=== PATIENT | male | born 1980 | race Caucasian/White ===

== ENCOUNTER 2018-06-05 13:52 | Outpatient (RCR) | payer MEDICAID, SELFPAY ==
[2018-06-05 14:13] VITALS: BP 115/71; PULSE 103; RESP 18; TEMP 36.6; BMI 27.4
--- NOTE | 2018-06-05 17:31 | PCM.WC.HP ---
(1) Pressure ulcer of sacral region, stage 4 Status: Chronic Current Visit: Yes Code(s): L89.154 - Pressure ulcer of sacral region, stage 4 History of Present Illness Date of Service: 06/05/18 Chief Complaint: Nonhealing ulceration to sacrum times 4 months History of Wound: This is a 38-year-old male who presents to the wound healing center today with his father with complaints of nonhealing pressure ulcer to his sacrum times 4 months. His past medical history is very limited due to the patient being nonverbal and due to his father having a extreme language barrier as well secondary to a stroke. Apparently the patient's wound started 4 months ago after he had a brain abscess and a shunt was placed and the patient was treated for this at [facility] with multiple antibiotics. He has been a resident of multiple nursing homes since then and has most recently been at [facility]. According to the patient's father, the patient has been more lethargic today and has also been complaining of abdominal pain. Patient hard to arouse during clinical exam. On exam large amount of purulent drainage from stage IV pressure ulcer present. An old dressing was removed from the area that appeared to be embedded into the periwound bed for a lengthy amount of time and after dressing was removed quarter sized piece of bone laying in wound cavity which was removed. Patient's vital signs were reviewed and he is afebrile, however he is slightly tachycardic and has a blood pressure of 115/72. Given patient's multiple comorbidities and current signs and symptoms he was referred to the emergency department for further evaluation and workup. Past Medical History Past Medical History: Chronic Problems (Last Reviewed 06/06/18 @ 05:53 by Vimal Padron MD) Pressure ulcer of sacral region, stage 4 (Chronic) Osteomyelitis (Chronic) Allergies/Adverse Reactions: Allergies Penicillins Allergy (Verified 11/28/16 09:57) Hives Home Medications: Ambulatory Orders Medication Instructions Recorded Amino Acids/Protein Hydrolys 30 ml PO TID 06/05/18 [Pro-Stat Max Liquid] Arginine/Ascorbate Sod/[place] AC 1 each PO BID 06/05/18 [Arginaid Powder] Aspirin [Lite Coat Aspirin] 325 mg PO DAILY 06/05/18 Bromocriptine Mesylate [Parlodel] 5 mg PO BIDCM 06/05/18 Insulin Aspart [Novolog Flexpen See Protocol SC 4X/DAY 06/05/18 ([facility])] Lactobacillus Acidophilus 1 cap PO BID 06/05/18 [Acidophilus] Metformin HCl [Glucophage] 1,000 mg PO BIDCM 06/05/18 Multivitamin [Multiple Vitamins] 1 tab PO DAILY 06/05/18 RX: Amantadine Liquid 10 ml BC DAILY 06/05/18 RX: Amoxicillin [Amoxil] 500 mg PO TID 06/05/18 RX: Cyclobenzaprine HCl 10 mg PO BID 06/05/18 RX: Ertapenem Sod [Invanz] 1 gm IM DAILY 06/05/18 RX: Gabapentin [Neurontin] 300 mg PO TID 06/05/18 RX: Glucerna Shake 120 ml PO BID 06/05/18 Sertraline HCl [Zoloft] 50 mg PO DAILY 06/05/18 Thiamine HCl [Vitamin B-1] 100 mg PO DAILY 06/05/18 Smoking Status: Current every day smoker Review of Systems Unable to obtain accurate/complete ROS d/t: Patient being unarousable and nonverbal - Physical Exam Vital Signs Temp Pulse Resp BP 97.8 F 103 H 18 115/71 06/05/18 14:13 06/05/18 14:13 06/05/18 14:13 06/05/18 14:13 General: Lethargic, Non-Cooperative Oral: Moist Mucosa Lungs: Wheezes Cardiovascular: Tachycardic Abdomen: Soft, Non Tender Extremities: No clubbing, No cyanosis, No edema Skin: Ulcer/ Wound - Stage IV pressure ulcer to sacrum with large amount of purulent drainage, old dressing that was embedded into the wound bed was removed from wound bed and quarter size piece of bone fell from cavity and was therefore removed. Site has extensive undermining and probes to bone. Large amount of slough and devitalized tissue present Wound Measurements and Assessment WC - Nurse 1 - General Ulcer Measurement Start: 06/05/18 14:13 Freq: Status: Active Protocol: Activity Type Activity Date Activity User E-Sign Co-Sign Detail Recorded Client Recorded Date Recorded By Document 06/05/18 14:13 NC [id number] 06/05/18 14:45 NC 06/05/18 14:13 Wound Center Nurse 1 [Ulcer Assessment] #1 SACRUM -Current Size (cm) - Length 7.5 -Current Size (cm) - Width 4 -Current Size (cm) - Depth 3.5 -Total Square Cm 30.0 -Date of Last Picture (Recall this 06/05/18 field) -Photo Taken Yes -Undermining/Tunneling Yes -Undermining/Tunneling Starts (O' 12 clock) -Undermining/Tunneling Ends (O'clock) 12 -Maximum Distance (cm) 5 -Circular Undermining Yes -Classification - Pressure Ulcer Stage 4 -Exudate Amt Medium -Exudate Type Serosanguineous -Wound Margin Thickened & Rolled Under -Granulation Amt Small (1-33%) -Granulation Quality Pale [place] -Necrosis Amt Large (67-100%) -Necrotic Tissue Type Adherent Slough -Structure Exposed Tendon -Texture (Sharmila-wound Skin Appearance) Assessed -Moisture (Sharmila-wound Skin Appearance Assessed ) Maceration -Color (Sharmila-wound Skin Appearance) Assessed -Temperature (Sharmila-wound Skin No Abnormality Appearance) (Pt Warm) -Tenderness on Palpation (Sharmila-wound No Skin Appearance) -Ulcer Cleansing Rinsed/ Irrigated with Saline -Foul Odor after Cleansing Yes -Anesthetic Used 4% Lidocaine Solution Musculoskeletal: Muscle Wasting Neurological: - - Unable to complete neurologic exam as patient is lethargic and unable to follow commands Psych/Mental Status: - - Unable to assess Debridement Note No debridement was completed today Assessment/Plan Active Problems (Last Reviewed 06/06/18 @ 05:53 by Vimal Padron MD) Pressure ulcer of sacral region, stage 4 (Chronic) Osteomyelitis (Chronic) Assessment: See above HPI Plan: Referral to emergency department, given the circumstances surrounding the patient condition social work was consulted and medical case manager at the wound healing center to provide communication follow-up with [facility] about patient's condition and concerns. Code Visit Office Visits / Consults: [id number] OV L3 Est
--- NOTE | 2018-06-05 17:39 | HP.PCM_ITS ---
(1) Pressure ulcer of sacral region, stage 4 Status: Chronic Current Visit: Yes Code(s): L89.154 - Pressure ulcer of sacral region, stage 4 History of Present Illness Date of Service: 06/05/18 Chief Complaint: Nonhealing ulceration to sacrum times 4 months History of Wound: This is a 38-year-old male who presents to the wound healing center today with his father with complaints of nonhealing pressure ulcer to his sacrum times 4 months. His past medical history is very limited due to the patient being nonverbal and due to his father having a extreme language barrier as well secondary to a stroke. Apparently the patient's wound started 4 months ago after he had a brain abscess and a shunt was placed and the patient was treated for this at [facility] with multiple antibiotics. He has been a resident of multiple nursing homes since then and has most recently been at [facility]. According to the patient's father, the patient has been more lethargic today and has also been complaining of abdominal pain. Patient hard to arouse during clinical exam. On exam large amount of purulent drainage from stage IV pressure ulcer present. An old dressing was removed from the area that appeared to be embedded into the periwound bed for a lengthy amount of time and after dressing was removed quarter sized piece of bone laying in wound cavity which was removed. Patient's vital signs were reviewed and he is afebrile, however he is slightly tachycardic and has a blood pressure of 115/72. Given patient's multiple comorbidities and current signs and symptoms he was referred to the emergency department for further evaluation and workup. Past Medical History Past Medical History: Chronic Problems (Last Reviewed 06/06/18 @ 05:53 by Vimal Padron MD) Pressure ulcer of sacral region, stage 4 (Chronic) Osteomyelitis (Chronic) Allergies/Adverse Reactions: Allergies Penicillins Allergy (Verified 11/28/16 09:57) Hives Home Medications: Ambulatory Orders Medication Instructions Recorded Amino Acids/Protein Hydrolys 30 ml PO TID 06/05/18 [Pro-Stat Max Liquid] Arginine/Ascorbate Sod/[place] AC 1 each PO BID 06/05/18 [Arginaid Powder] Aspirin [Lite Coat Aspirin] 325 mg PO DAILY 06/05/18 Bromocriptine Mesylate [Parlodel] 5 mg PO BIDCM 06/05/18 Insulin Aspart [Novolog Flexpen See Protocol SC 4X/DAY 06/05/18 ([facility])] Lactobacillus Acidophilus 1 cap PO BID 06/05/18 [Acidophilus] Metformin HCl [Glucophage] 1,000 mg PO BIDCM 06/05/18 Multivitamin [Multiple Vitamins] 1 tab PO DAILY 06/05/18 RX: Amantadine Liquid 10 ml BC DAILY 06/05/18 RX: Amoxicillin [Amoxil] 500 mg PO TID 06/05/18 RX: Cyclobenzaprine HCl 10 mg PO BID 06/05/18 RX: Ertapenem Sod [Invanz] 1 gm IM DAILY 06/05/18 RX: Gabapentin [Neurontin] 300 mg PO TID 06/05/18 RX: Glucerna Shake 120 ml PO BID 06/05/18 Sertraline HCl [Zoloft] 50 mg PO DAILY 06/05/18 Thiamine HCl [Vitamin B-1] 100 mg PO DAILY 06/05/18 Smoking Status: Current every day smoker Review of Systems Unable to obtain accurate/complete ROS d/t: Patient being unarousable and nonverbal - Physical Exam Vital Signs Temp Pulse Resp BP 97.8 F 103 H 18 115/71 06/05/18 14:13 06/05/18 14:13 06/05/18 14:13 06/05/18 14:13 General: Lethargic, Non-Cooperative Oral: Moist Mucosa Lungs: Wheezes Cardiovascular: Tachycardic Abdomen: Soft, Non Tender Extremities: No clubbing, No cyanosis, No edema Skin: Ulcer/ Wound - Stage IV pressure ulcer to sacrum with large amount of purulent drainage, old dressing that was embedded into the wound bed was removed from wound bed and quarter size piece of bone fell from cavity and was therefore removed. Site has extensive undermining and probes to bone. Large amount of slough and devitalized tissue present Wound Measurements and Assessment WC - Nurse 1 - General Ulcer Measurement Start: 06/05/18 14:13 Freq: Status: Active Protocol: Activity Type Activity Date Activity User E-Sign Co-Sign Detail Recorded Client Recorded Date Recorded By Document 06/05/18 14:13 KS [id number] 06/05/18 14:45 KS 06/05/18 14:13 Wound Center Nurse 1 [Ulcer Assessment] #1 SACRUM -Current Size (cm) - Length 7.5 -Current Size (cm) - Width 4 -Current Size (cm) - Depth 3.5 -Total Square Cm 30.0 -Date of Last Picture (Recall this 06/05/18 field) -Photo Taken Yes -Undermining/Tunneling Yes -Undermining/Tunneling Starts (O' 12 clock) -Undermining/Tunneling Ends (O'clock) 12 -Maximum Distance (cm) 5 -Circular Undermining Yes -Classification - Pressure Ulcer Stage 4 -Exudate Amt Medium -Exudate Type Serosanguineous -Wound Margin Thickened & Rolled Under -Granulation Amt Small (1-33%) -Granulation Quality Pale [place] -Necrosis Amt Large (67-100%) -Necrotic Tissue Type Adherent Slough -Structure Exposed Tendon -Texture (Sharmila-wound Skin Appearance) Assessed -Moisture (Sharmila-wound Skin Appearance Assessed ) Maceration -Color (Sharmila-wound Skin Appearance) Assessed -Temperature (Sharmila-wound Skin No Abnormality Appearance) (Pt Warm) -Tenderness on Palpation (Sharmila-wound No Skin Appearance) -Ulcer Cleansing Rinsed/ Irrigated with Saline -Foul Odor after Cleansing Yes -Anesthetic Used 4% Lidocaine Solution Musculoskeletal: Muscle Wasting Neurological: - - Unable to complete neurologic exam as patient is lethargic and unable to follow commands Psych/Mental Status: - - Unable to assess Debridement Note No debridement was completed today Assessment/Plan Active Problems (Last Reviewed 06/06/18 @ 05:53 by Vimal Padron MD) Pressure ulcer of sacral region, stage 4 (Chronic) Osteomyelitis (Chronic) Assessment: See above HPI Plan: Referral to emergency department, given the circumstances surrounding the patient condition social work was consulted and outpatient case manager at the wound healing center to provide communication follow-up with [facility] about patient's condition and concerns. Code Visit Office Visits / Consults: [id number] OV L3 Est
== END 2018-06-26 23:59 ==
LOC: WC 13:52
PROVIDERS: Visit Provider Nurse Practitioner Family
DX: L89.154 Pressure ulcer of sacral region, stage 4 (principal); F17.200 Nicotine dependence, unspecified, uncomplicated
CPT/HCPCS: 99213; G0463

== ENCOUNTER 2018-06-05 17:04 | Observation (INO) | payer MEDICAID, SELFPAY ==
[2018-06-05 14:13] VITALS: BMI 27.4
[2018-06-05 17:07] VITALS: BP 104/72; PULSE 100; RESP 20; TEMP 36.9; O2SAT 95; BMI 25.9
--- NOTE | 2018-06-05 17:43 | RAD_ITS ---
STUDY: X-RAY CHEST REASON FOR EXAM: Male, 38 years old. Short of breath TECHNIQUE: AP portable COMPARISON: None. FINDINGS: Elevated right hemidiaphragm and minor basilar atelectasis. There is no demonstrated pleural abnormality. Normal size heart. Normal mediastinum and natalio. Normal visualized pulmonary arteries. Normal visualized aortic arch and descending thoracic aorta. Normal visualized thoracic spine. Normal visualized ribs, clavicles, and shoulders. There is no demonstrated abnormality of the visualized soft tissue structures of the upper abdomen. RAD/Chest 1 View (Portable) IMPRESSION: Elevated right hemidiaphragm and minor basilar atelectasis. Electronically Signed: Dangelo Jeffery MD at 19:18 EST , Service support ,
[2018-06-05 18:26] LABS: Absolute Lymphocyte Count 2.23 X10^3/ul (0.83-4.51); Absolute Neutrophil Count 7.5 X10^3/uL (2.0-7.7); Basophil# 0.05 X10^3/uL; Basophil% 0.4 % (0-1); Eosinophil# 0.42 X10^3/uL; Eosinophils% 3.7 % (0-5); Hematocrit 35.9 % (40-54); Lymphocyte # 2.23 X10^3/ul (4.0); Lymphocyte % 19.9 % (19-41); Mean Corp Hgb Conc 30.6 g/gl (32-36); Mean Corpuscular Hgb 27.3 pg (27.0-32.0); Mean Corpuscular Volume 89.1 fL (80-94); Mean Platelet Vol. 9.8 fl (6.2-12.0); Monocyte# 0.91 X10^3/uL; Monocyte% 8.1 % (0-10); Neutrophil # 7.45 X10^3/uL (2.7-7.7); Neutrophil % 66.4 % (47-70); Platelet Count 315 K/mm3 (150-450); RBC Distribution Width CV 15.5 % (11.6-14.6); RBC Distribution Width SD 49.9 fl (35.1-43.9); Red Blood Count 4.03 M/mm3 (4.6-6.2); White Blood Count 11.2 K/mm3 (4.4-11.0)
[2018-06-05] MEDS: 0.9% Normal Saline 1,000 ML 1000 ML IV (18:38)
[2018-06-05 18:41] LABS: Anion Gap 6 (5-15); BUN 14 mg/dL (7-18); BUN/Creat Ratio 40.1 RATIO (10-20); Calcium,Total 8.9 mg/dL (8.5-10.1); Chloride 103 mmol/L (98-107); Creatinine, Serum 0.35 mg/dL (0.70-1.30); EST Glomerular Filtration Rate 298 mL/min (>60); Est Glom Filt Rate - Afr Amer 360 mL/min (>60); Estimated Creatinine Clearance 283.36 ml/min; Glucose 114 mg/dL (74-106); Sodium Level 139 mmol/L (136-145)
[2018-06-05 18:55] VITALS: BP 106/70; PULSE 101; RESP 18; TEMP 36.9; O2SAT 96
[2018-06-05 18:55] LABS: Lactic Acid 1.2 mmol/L (0.4-2.0)
[2018-06-05 18:59] LABS: POSITIVE COUNT NO; POSITIVE DIFFERENTIAL NO; POSITIVE MORPHOLOGY NO
[2018-06-05 19:00] VITALS: TEMP 36.9
--- NOTE | 2018-06-05 19:00 | RAD_ITS ---
HISTORY: sacral wound, back pain COMPARISON: None FINDINGS: # of images incl. paperwork: 3 XR Spine Lumbar 3 Views: A large sacral decubitus ulcer is noted. There is decreased density and some erosive changes of the underlying coccyx and distal dorsal sacrum. VERTEBRAE: Preserved vertebral body height. No fracture. Mild facet degeneration lower lumbar spine. VERTEBRAL ALIGNMENT: Sagittal alignment anatomic. Mild right scoliosis centered at L3. DISCS: Disc spaces are preserved. INCLUDED ABDOMEN: No pathologic calcifications observed. Included bowel gas pattern is non-obstructive. catheter possibly a shunt partially visible in the abdomen. RAD/Lumbar Spine 2 or 3 Views IMPRESSION: Sacral decubitus ulcer with findings concerning for underlying chronic sacral osteomyelitis. CT or MRI would more definitively evaluate if clinically necessary. at 1934 Reported and signed by: Prosper Penaloza MD Electronically Signed: Prosper Penaloza, at 19:33 EST Tel , Service support ,
[2018-06-05 19:17] LABS: Bacteria 0 SEEN /hpf (None Seen); Mucous, Urine 0 SEEN /hpf (<or=2+)
--- NOTE | 2018-06-05 19:19 | ED.DCSUM_ITS ---
- ER Visit Summary Date of Service: 06/05/18 Chief Complaint: Wound check History of Present Illness: The patient is a 38 M sent in for wound check. Patient was seen at the wound center today for the first time. They sent him into the ED for further evaluation. They found an old bandage in his wound that is unclear how long that was in the wound. He has a stage IV sacral decubitus ulcer with bone exposure. He has had tachycardia and was hypotensive prior to arrival. Patient has a history of a previous TBI and history is limited. Physical Examination: Vitals are stable. Heart rate 100. Patient is afebrile. Alert no acute distress. HEENT exam is unremarkable. Neck is supple. Lungs are clear and equal bilaterally. Heart is regular and tachycardic Abdomen is soft nontender nondistended. Back: Stage IV sacral decubitus ulcer 7 cm x 5 cm. Extremities are unremarkable. Skin is warm and dry. Remainder of exam is unremarkable. Emergency Department Course and Treatment: Patient was given IV fluids. CBC shows white count 11.2, hemoglobin 11.0. Chemistries unremarkable. Lactic acid is normal. Wound culture and blood cultures were sent. Chest x-ray shows atelectasis. Lumbar spine x-ray shows sacral decubitus ulcer with findings concerning for underlying chronic sacral osteomyelitis. CT or MRI would more definitively evaluate if clinically necessary. UA shows 50-100 white blood cells. Urine culture was sent. He was started on vancomycin IV. Discussed with the hospitalist for admission. Disposition: Admission Impression: Stage IV sacral decubitus ulcer with chronic sacral osteomyelitis; UTI This note was generated with [facility] dictation software. It may contain incorrect words, spelling, and punctuation that were not noted in review of the chart prior to signing ED Disposition - Plan for ED Patient: Referrals: Shaun Mendoza MD [Primary Care Provider] -
[2018-06-05 19:24] LABS: Color, Urine Yellow (Yellow); Glucose, Dipstick Normal (Normal); Ketone-Dipstick Negative (Negative); Leukocyte Esterase-Dipstick 500 /ul (Negative); Nitrite-Dipstick Negative (Negative); Occult Blood-Urine 25 /ul (Negative); Protein-Dipstick 30 mg/dl (Negative); Urine Bilirubin Dipstick Negative (Negative); Urine Clarity Cloudy (Clear); Urine Urobilinogen Normal (Normal)
[2018-06-05 19:39] LABS: White Blood Cells 50-100 SEEN /hpf (0-5)
[2018-06-05 19:40] LABS: Calcium Oxalate Crystals Ur 1+ /hpf (<or=2+); Red Blood Cells-Urine 0-5 SEEN /hpf (0-5); Yeast-Urine 2+ /hpf (None Seen)
[2018-06-05 19:42] LABS: Squamous Epithelial Cells - UA 0-5 SEEN /hpf (0-5)
[2018-06-05 20:00] VITALS: BP 100/72; PULSE 91; RESP 17; TEMP 36.8; O2SAT 97
--- NOTE | 2018-06-05 20:16 | HP.PCM_ITS ---
Problem List (1) Osteomyelitis Status: Chronic (2) Pressure ulcer of sacral region, stage 4 Status: Chronic History of Present Illness Date of Admission: 06/05/18 Chief Complaint: probable wound infection The patient is a 38 year old M with a significant history of Depression, brain abscess s/p brain surgery with [employer] AD[employer]ISTRATOR shunt; questionable heart abscess; Diabetes Mellitus; Tremors; chronic sacral wound who was sent from the wound care center on the same day of admission because of old dressing found in his wound. Patient is less talkative and majority of the history was taken from patient's daughter. Patient lives at a assisted. Past Medical History Past Medical History (Chronic Problems): Chronic Problems (Last Reviewed 06/06/18 @ 05:53 by Vimal Padron MD) Pressure ulcer of sacral region, stage 4 (Chronic) Osteomyelitis (Chronic) Medical History: Medical History (Last Reviewed 06/06/18 @ 05:53 by Vimal Padron MD) Brain injury S06.9X9A Allergies Penicillins Allergy (Verified 11/28/16 09:57) Hives Home Medications: Ambulatory Orders Medication Instructions Recorded Amantadine Liquid 10 ml BC DAILY 06/05/18 Amino Acids/Protein Hydrolys 30 ml PO TID 06/05/18 [Pro-Stat Max Liquid] Amoxicillin [Amoxil] 500 mg PO TID 06/05/18 Arginine/Ascorbate Sod/[place] AC 1 each PO BID 06/05/18 [Arginaid Powder] Aspirin [Lite Coat Aspirin] 325 mg PO DAILY 06/05/18 Bromocriptine Mesylate [Parlodel] 5 mg PO BIDCM 06/05/18 Cyclobenzaprine HCl 10 mg PO BID 06/05/18 Ertapenem Sod [Invanz] 1 gm IM DAILY 06/05/18 Gabapentin [Neurontin] 300 mg PO TID 06/05/18 Glucerna Shake 120 ml PO BID 06/05/18 Insulin Aspart [Novolog Flexpen See Protocol SC 4X/DAY 06/05/18 ([facility])] Lactobacillus Acidophilus 1 cap PO BID 06/05/18 [Acidophilus] Metformin HCl [Glucophage] 1,000 mg PO BIDCM 06/05/18 Multivitamin [Multiple Vitamins] 1 tab PO DAILY 06/05/18 Sertraline HCl [Zoloft] 50 mg PO DAILY 06/05/18 Thiamine HCl [Vitamin B-1] 100 mg PO DAILY 06/05/18 Surgical History: - - Brain surgery with [employer]ISTRATOR shunt Lives: Retirement Smoking Status: Former smoker Alcohol: None Review of Systems Constitutional: Denies: Chills, Fever, Weight Change HEENT: Denies: Head Aches, Sinus Congestion, Sinus Drainage Cardiovascular: Denies: Chest Pain, Palpitations Respiratory: Denies: Cough, Shortness of breath at rest, Sputum production Gastrointestinal: Denies: Abdominal Pain, Nausea, Vomiting Genitourinary: Denies: Dysuria Musculoskeletal: Denies: Joint Pain, Joint Tenderness Skin: Denies: Rash, Wounds Neurological: Denies: Numbness, Tingling, Focal weakness Psychiatric: Denies: Anxiety, Depression, Homicidal Ideations, Suicidal Ideations Hematologic/ Lymphatic: Denies: Easy Bruising, Easy Bleeding VTE Information - Inpt Only VTE Present on Admission: No VTE Mechan Device Prophylaxis: None VTE Pharm Prophylaxis ordered?: Yes - Physical Exam General: Alert, - - Less interactive HEENT: Normocephalic Neck: Supple, No JVD, Trachea Midline Lungs: Clear to auscultation, Normal air movement Cardiovascular: Regular rate, No murmurs Abdomen: Bowel Sounds Present, Soft, Non Tender Extremities: No edema, Capillary Refill Less than 3 Seconds Skin: - - Extensive sacral ulcer with barks[place] pus Musculoskeletal: No Muscle Wasting Neurological: Neuro grossly intact Psych/Mental Status: Depressed Vital Signs Temp Pulse Resp BP Pulse Ox 98.3 F 91 17 100/72 97 06/05/18 20:00 06/05/18 20:00 06/05/18 20:00 06/05/18 20:00 06/05/18 20:00 Oxygen Flow Rate (L/min) 2 Oxygen Delivery Method Nasal Cannula Weight: 79.6 kg Body Mass Index (BMI) 25.9 Laboratory Tests Past 24 Hrs 06/05/18 06/05/18 06/05/18 18:10 18:10 18:10 WBC 11.2 H RBC 4.03 L Hgb 11.0 L Hct 35.9 L MCV 89.1 MCH 27.3 MCHC 30.6 L RDW 15.5 H RDW Differential 49.9 H Plt Count 315 MPV 9.8 Immature Gran % (Auto) 1.500 H Neut % (Auto) 66.4 Lymph % (Auto) 19.9 [place] % (Auto) 8.1 Eos % (Auto) 3.7 Baso % (Auto) 0.4 Absolute Neuts (auto) 7.5 Absolute Lymphs (auto) 2.23 Total Counted Not Reportable Sodium 139 Potassium 4.0 Chloride 103 Carbon Dioxide 30.0 Anion Gap 6 BUN 14 Creatinine 0.35 L Estim Creat Clear Calc 283.36 Est GFR (MDRD) Af Amer 360 Est GFR (MDRD) Non-Af 298 BUN/Creatinine Ratio 40.1 H Glucose 114 H Lactic Acid 1.2 Calcium 8.9 Urine Color Urine Clarity Urine pH Ur Specific [place] Urine Protein Urine Glucose (UA) Urine Ketones Urine Occult Blood Urine Nitrite Urine Bilirubin Urine Urobilinogen Ur Leukocyte Esterase Urine RBC Urine WBC Ur Squamous Epith Cells Calcium Oxalate Crystal Urine Bacteria Urine Mucus Urine Yeast 06/05/18 19:10 WBC RBC Hgb Hct MCV MCH MCHC RDW RDW Differential Plt Count MPV Immature Gran % (Auto) Neut % (Auto) Lymph % (Auto) [place] % (Auto) Eos % (Auto) Baso % (Auto) Absolute Neuts (auto) Absolute Lymphs (auto) Total Counted Sodium Potassium Chloride Carbon Dioxide Anion Gap BUN Creatinine Estim Creat Clear Calc Est GFR (MDRD) Af Amer Est GFR (MDRD) Non-Af BUN/Creatinine Ratio Glucose Lactic Acid Calcium Urine Color Yellow Urine Clarity Cloudy Urine pH 7.0 Ur Specific [place] 1.010 Urine Protein 30 H Urine Glucose (UA) Normal Urine Ketones Negative Urine Occult Blood 25 H Urine Nitrite Negative Urine Bilirubin Negative Urine Urobilinogen Normal Ur Leukocyte Esterase 500 H Urine RBC 0-5 SEEN Urine WBC 50-100 SEEN Ur Squamous Epith Cells 0-5 SEEN Calcium Oxalate Crystal 1+ Urine Bacteria 0 SEEN Urine Mucus 0 SEEN Urine Yeast 2+ Assessment/Plan The patient is a 38 year old M with a significant Depression, brain abscess s/p brain surgery with [employer] AD[employer]ISTRATOR shunt; questionable heart abscess; Diabetes Mellitus; Tremors; chronic sacral wound who was sent from the wound care center on the same day of admission because of old dressing found in his wound and with his wound concerning for chronic osteomyelitis. Probable Chronic osteomyelitis. Patient was sent by wound care center who has better knowledge of patient wound. Wound care center was concerned that on old dressing was in the patient's wound wanted patient to be assessed at the hospital. Lumbar spine x-ray showed sacral decubitus ulcer with findings concerning of underlying chronic sacral osteomyelitis. CT or MRI was recommended. Other MRI of his sacrum. We will get ESR and CRP. Patient daughter reported that patient had anaphylactic reaction to penicillin patient was a child at about age 7. Patient daughter reported that patient felt like his throat was closing after receiving penicillin. On patient home medication list is amoxicillin and Ertapenem We will start patient on vancomycin and Merrem; and consult infectious disease to optimize management. Blood cultures are pending. The wound culture is pending. Consider consulting plastic surgery due to extensiveness of the wound. Wet-to-dry dressing ordered. Wound care consult. Patient appeared less talkative and somewhat lethargic but her daughter states that this is chronic. Arginaid powder continued for wound healing. Patient does not really appear sick so this may be chronic osteomyelitis and he has no complain except that the wound care center found old dressing in his wound. Tremors Patient daughter denies the patient has Parkinson's disease. Presume essential tremors Amantadine and bromocriptine continued. Questionable heart abscess. Patient's daughter reported that patient had had abscess and follows up with a [facility]. Order to obtain records from [facility]. Diabetes mellitus On the blood on presentation his blood glucose was within goal. On home metformin and correction scale insulin. We will hold metformin since it is too early in his admission. QA [facility] correction scale insulin continued. No concentrated sweets Depression Zoloft continued DVT Prophylaxis SQ Heparin. Code Visit Inpatient E&M: 70167 Init Hosp L3
[2018-06-05 21:00] VITALS: BP 99/68; PULSE 99; RESP 18; TEMP 36.9; O2SAT 97
[2018-06-05 22:15] VITALS: BMI 22.4
[2018-06-05 22:23] VITALS: BP 95/58; PULSE 86; RESP 16; TEMP 36.7; O2SAT 98
[2018-06-05 22:54] VITALS: BMI 22.5
[2018-06-05 23:01] LABS: Erythrocyte Sedimentation Rate 58 mm/hr (0-15)
--- NOTE | 2018-06-05 23:35 | NURSING ---
Leonel Rom contacted for request of specialty mattress. Confirmation #[id number].
[2018-06-05] MEDS: Glucerna Shake 120 ML LIQUID PO (23:46)
[2018-06-05] MEDS: Gabapentin 300 MG Capsule PO (23:47)
[2018-06-06 00:12] LABS: Bedside Glucose 124 mg/dL (70-110)
--- NOTE | 2018-06-06 00:43 | PCM.RX.CS ---
Consult Pharmacy has been consulted to manage selected antiobiotic: Vancomycin Type of Consult: New start Suspected Infection: Osteomyelitis Prior Doses of Antibiotics Received/Current Regimen: Medications Vancomycin HCl (Vancomycin) 1,000 mg in 200 mls @ 200 mls/hr IV Q8H GUS Discontinued Medications Vancomycin HCl 1,250 mg/ (Sodium Chloride) 275 mls @ 167 mls/hr IV X1 ONE Stop: 06/05/18 21:25 Last Admin: 06/05/18 20:13 Dose: 167 mls/hr Labs: Sodium 139 mmol/L (136-145) 06/05/18 18:10 Potassium 4.0 mmol/L (3.5-5.1) 06/05/18 18:10 Chloride 103 mmol/L (98-107) 06/05/18 18:10 Carbon Dioxide 30.0 mmol/L (21.0-32.0) 06/05/18 18:10 Anion Gap 6 (5-15) 06/05/18 18:10 BUN 14 mg/dL (7-18) 06/05/18 18:10 Creatinine 0.35 mg/dL (0.70-1.30) L 06/05/18 18:10 Est GFR (MDRD) Af Amer 360 mL/min (>60) 06/05/18 18:10 Est GFR (MDRD) Non-Af 298 mL/min (>60) 06/05/18 18:10 BUN/Creatinine Ratio 40.1 RATIO (10-20) H 06/05/18 18:10 Glucose 114 mg/dL (74-106) H 06/05/18 18:10 Weight used for dosin.2 kg Estimated Creatinine Clearance: >120 Goal Trough: 15-20 mcg/mL Pharmacy Plan for Drug Dosing: Pharmacy Service will continue to monitor and adjust dosing as required. Follow-Up Labs: Trough Vancomycin Labs to be done on [date and time ordered]: 06/06/18 @1930 (prior to 4th dose)
[2018-06-06 04:35] VITALS: BP 107/69; PULSE 97; RESP 16; TEMP 36.7; O2SAT 96
[2018-06-06] MEDS: Vancomycin IV 1,000 MG/200 ML BAG 200 MG IV ×3 (04:43→20:04)
[2018-06-06] MEDS: Heparin Injection (Vial) 5,000 UNIT/ML VIAL 5000 UNIT SC ×3 (06:00→23:01)
[2018-06-06] MEDS: Gabapentin 300 MG Capsule PO ×3 (06:00→23:08)
[2018-06-06 06:05] LABS: Absolute Lymphocyte Count 2.16 X10^3/ul (0.83-4.51); Absolute Neutrophil Count 7.1 X10^3/uL (2.0-7.7); Basophil# 0.03 X10^3/uL; Basophil% 0.3 % (0-1); Eosinophil# 0.37 X10^3/uL; Eosinophils% 3.5 % (0-5); Hematocrit 32.3 % (40-54); Hemoglobin 9.7 g/dl (13.0-16.5); Lymphocyte # 2.16 X10^3/ul (4.0); Lymphocyte % 20.7 % (19-41); Mean Corpuscular Hgb 27.6 pg (27.0-32.0); Mean Corpuscular Volume 91.8 fL (80-94); Mean Platelet Vol. 10.3 fl (6.2-12.0); Monocyte# 0.69 X10^3/uL; Monocyte% 6.6 % (0-10); Neutrophil # 7.08 X10^3/uL (2.7-7.7); Neutrophil % 67.7 % (47-70); Platelet Count 297 K/mm3 (150-450); RBC Distribution Width CV 15.4 % (11.6-14.6); RBC Distribution Width SD 49.9 fl (35.1-43.9); Red Blood Count 3.52 M/mm3 (4.6-6.2); White Blood Count 10.5 K/mm3 (4.4-11.0)
[2018-06-06 06:13] LABS: POSITIVE COUNT NO; POSITIVE DIFFERENTIAL NO; POSITIVE MORPHOLOGY NO
[2018-06-06 06:28] LABS: Anion Gap 9 (5-15); BUN 8 mg/dL (7-18); BUN/Creat Ratio 33.3 RATIO (10-20); Calcium,Total 8.7 mg/dL (8.5-10.1); Chloride 105 mmol/L (98-107); Creatinine, Serum 0.24 mg/dL (0.70-1.30); EST Glomerular Filtration Rate 459 mL/min (>60); Est Glom Filt Rate - Afr Amer 555 mL/min (>60); Glucose 130 mg/dL (74-106); Potassium 3.9 mmol/L (3.5-5.1); Sodium Level 140 mmol/L (136-145)
[2018-06-06 06:57] LABS: Bedside Glucose 113 mg/dL (70-110)
[2018-06-06 07:54] VITALS: O2SAT 96
[2018-06-06 10:09] VITALS: BP 83/47; PULSE 98; RESP 16; TEMP 37.2; O2SAT 96
[2018-06-06] MEDS: Thiamine Hydrochloride 100 MG Tablet PO (10:12)
[2018-06-06] MEDS: Aspirin 325 MG Tablet PO (10:12)
[2018-06-06] MEDS: Sertraline 50 MG Tablet PO (10:12)
[2018-06-06] MEDS: Multivitamins,Therapeutic Tablet 1 TABLET PO (10:12)
[2018-06-06] MEDS: Glucerna Shake 120 ML LIQUID PO ×3 (10:15→23:00)
[2018-06-06] MEDS: AMANTADINE HCL 50 MG/5ML 100 MG PO (10:15)
[2018-06-06 10:26] VITALS: BP 98/57
--- NOTE | 2018-06-06 10:26 | CASEMGMT ---
Social Work Note WILLIS updated from Dano Arce medical assistant secretary for nursing that Riya Porter, GRAIN OILSEED OR PASTURE FARM WORKER at [facility] saw pt yesterday and stated that pt had packing that he found that hadn't been taking out for a long period of time and had concerns about pt's care. Riya had informed Dano Arce that pt was at [facility] and had first visit at [facility] yesterday. Per Dano Arce, pt is not very communicative due and pt's father was present at visit but unable to communicate due to having a stroke. WILLIS discussed case with Alexandra Denny, SW senior portfolio manager. Alexandra Denny advised this worker to call [facility] and get additional information and she will call Riya Porter and inform him that if he has concerns regarding pt's care at SNF then he needs to call [facility] and report concerns. WILLIS placed a call to [facility] and spoke with Meghana in admissions. Meghana states that pt was skilled at [facility] and was getting 6-8 weeks of IV Antibiotics and the plan was to eventually get pt home but that it was going to be a while before he returns home. Meghana states that pt is able to communicate but mostly answers questions with yes or no and that he isn't able to communicate the care that he needs. Meghana confirms that pt's mom is Cecelia and pt has a daughter Sharonda. Meghana states that she mostly talks with Cecelia as Cecelia and Sharonda had informed her that Cecelia should be primary contact for pt. Meghana states that pt will need pre-cert again to return to [facility]. WILLIS attempted to call Cecelia with number listed on demographics but number is disconnected. WILLIS looked at pt's chart and number is listed for Cecelia ([phone]) and Sharonda ([phone]). WILLIS attempted to call Cecelia but no answer, phone kept ringing and not able to leave message. WILLIS placed a call to Sharonda and Sharonda confirms that pt is from [facility] and the plan is for pt to return there at discharge. WILLIS informed Sharonda that this worker tried to call Cecelia but there was no answer. Sharonda didn't mention any concerns with care at [facility]. Pily, wound nurse, updated this worker that she spoke with Riya Porter and encouraged riya to call [facility] and speak with KARLEE in regards to pt's care. Plan: Pt to return to [facility] pending pre-cert Germaine Holley RECREATION FACILITY MANAGER, WIRE MACHINE CUTTER
--- NOTE | 2018-06-06 10:45 | NURSING ---
wound photo: sacrum
[2018-06-06 11:43] LABS: M R Staph aureus DNA By PCR Negative (Negative); Probe Check PASS; Specimen Processing Control PASS; Staph aureus DNA By PCR NEGATIVE (Negative)
[2018-06-06 11:46] LABS: Bedside Glucose 113 mg/dL (70-110)
--- NOTE | 2018-06-06 12:55 | CASEMGMT ---
Karli Solis from [facility], pt's case advocate, called for an update on this pt([phone]). SW called Karli back and left a message to call this SW back. Also, Dr. Parham has been consulted. It is anticipated pt will be here through the weekend, so will start precert next week when pt is closer to being ready for discharge. ELIZABETH Springer, NETWORK ANNOUNCER
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
[2018-06-06 13:50] VITALS: BP 103/64; PULSE 96; RESP 14; TEMP 37.2; O2SAT 97
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
[2018-06-06 17:22] LABS: Bedside Glucose 101 mg/dL (70-110)
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
--- NOTE | 2018-06-06 18:59 | PCA ---
faxed over records to multiple hospitals for medical records, have not received any back
[2018-06-06 20:21] LABS: Vancomycin, Trough Level 13.5 ug/mL (5.0-15.0)
[2018-06-06 22:11] VITALS: BP 108/66; PULSE 107; RESP 16; TEMP 36.8; O2SAT 98
--- NOTE | 2018-06-06 22:54 | NURSING ---
Pt pulled out IV. This RN attempted new IV twice, LINDSEY Monaco attempted once. Called LINDSEY Carrizales to attempt.
[2018-06-06] MEDS: Insulin Lispro 100 UNIT/ML INSULN.PEN SQ (23:01)
[2018-06-06 23:17] LABS: Bedside Glucose 224 mg/dL (70-110)
--- NOTE | 2018-06-07 00:02 | NURSING ---
Waiting on ER nurse to call back to come attempt IV.
--- NOTE | 2018-06-07 00:32 | NURSING ---
SOLID TIRE TUBER MACHINE OPERATOR in room attempting new IV.
--- NOTE | 2018-06-07 00:55 | NURSING ---
ER nurse on their way to attempt new IV.
--- NOTE | 2018-06-07 01:33 | PCM.RX.CS ---
Consult Pharmacy has been consulted to manage selected antiobiotic: Vancomycin Type of Consult: Follow-up Suspected Infection: Osteomyelitis Prior Doses of Antibiotics Received/Current Regimen: Medications Vancomycin HCl 1,250 mg/ (Sodium Chloride) 275 mls @ 167 mls/hr IV Q8H [facility] Discontinued Medications Vancomycin HCl (Vancomycin) 1,000 mg in 200 mls @ 200 mls/hr IV Q8H [facility] Last Admin: 06/06/18 20:04 Dose: 200 mls/hr Labs: Sodium 140 mmol/L (136-145) 06/06/18 05:42 Potassium 3.9 mmol/L (3.5-5.1) 06/06/18 05:42 Chloride 105 mmol/L (98-107) 06/06/18 05:42 Carbon Dioxide 26.0 mmol/L (21.0-32.0) 06/06/18 05:42 Anion Gap 9 (5-15) 06/06/18 05:42 BUN 8 mg/dL (7-18) 06/06/18 05:42 Creatinine 0.24 mg/dL (0.70-1.30) L 06/06/18 05:42 Est GFR (MDRD) Af Amer 555 mL/min (>60) 06/06/18 05:42 Est GFR (MDRD) Non-Af 459 mL/min (>60) 06/06/18 05:42 BUN/Creatinine Ratio 33.3 RATIO (10-20) H 06/06/18 05:42 Glucose 130 mg/dL (74-106) H 06/06/18 05:42 Vancomycin Trough 13.5 ug/mL (5.0-15.0) 06/06/18 19:27 Microbiology: Microbiology 06/05/18 17:54 Wound - Buttock Gram Stain - Final 06/05/18 17:54 Wound - Buttock Wound Culture - Preliminary No growth-Final to follow 06/05/18 19:10 Urine Catheter - Catheter Urine Culture - Preliminary Culture exhibits no growth. Weight used for dosin.2 kg Estimated Creatinine Clearance: 439 Goal Trough: 15-20 mcg/mL Pharmacy Plan for Drug Dosing: Trough level of 13.5 received, lower than target range of 15-20. Dose was increased to 1250mg q8h. Will redraw trough level in 4 doses. Pharmacy Service will continue to monitor and adjust dosing as required. Follow-Up Labs: Trough Vancomycin Labs to be done on [date and time ordered]: 06/08/18 @6176
[2018-06-07] MEDS: 0.9% NaCl Peripheral Flush Adult/Peds IV ×2 (01:54→01:55)
[2018-06-07 04:19] VITALS: BP 106/71; PULSE 91; RESP 16; TEMP 36.6; O2SAT 97
[2018-06-07] MEDS: Heparin Injection (Vial) 5,000 UNIT/ML VIAL 5000 UNIT SC (06:51)
[2018-06-07] MEDS: Gabapentin 300 MG Capsule PO ×2 (06:52→14:50)
--- NOTE | 2018-06-07 06:54 | NURSING ---
Pt had pulled out IV last night and after approximately 16 attempts by multiple different nurses, a new IV was finally obtained & wrapped well to protect from pt pulling it out again. This morning, the VARNISHING UNIT TOOL SETTER came to this RN and made aware pt had pulled out his new IV again. assistant professor of psychology made aware.
[2018-06-07 07:02] LABS: Bedside Glucose 113 mg/dL (70-110)
[2018-06-07 07:25] VITALS: O2SAT 99
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
[2018-06-07] MEDS: Thiamine Hydrochloride 100 MG Tablet PO (09:49)
[2018-06-07] MEDS: Sertraline 50 MG Tablet PO (09:49)
[2018-06-07] MEDS: Aspirin 325 MG Tablet PO (09:49)
[2018-06-07] MEDS: Multivitamins,Therapeutic Tablet 1 TABLET PO (09:49)
[2018-06-07] MEDS: AMANTADINE HCL 50 MG/5ML 100 MG PO (09:49)
[2018-06-07 10:19] VITALS: BP 109/65; PULSE 95; RESP 16; TEMP 36.9; O2SAT 98
--- NOTE | 2018-06-07 11:00 | CASEMGMT ---
Addendum entered by Judit Mcadams 06/07/18 12:39: Millicent met w/family, pt will be assessed for the inpt hospice unit, family signed papers. The family's goal is to bring pt home. It is anticipated pt will be able to go to the inpt unit initially and then transition home. ELIZABETH Springer, DIE CLEANER Original Note: Pt's mother, father, two daughters, sister and niece are here. SW spoke w/them in the room, they would like to speak w/hospice, to at least find out additional information. SW also asked physician to speak w/the family, he is speaking to pt's daughters, sister and mother at present. SW called the emergency services professionalfreight caller for hospice, awaiting a return call. ELIZABETH Springer, DIE CLEANER
[2018-06-07 11:27] LABS: Bedside Glucose 203 mg/dL (70-110)
[2018-06-07] MEDS: Insulin Lispro 100 UNIT/ML INSULN.PEN SQ (11:27)
--- NOTE | 2018-06-07 14:57 | NURSING ---
SYDNEY RN FROM HOSPICE HERE TO SEE PT AND TALK WITH FAMILY. FAMILY AGREED TO INPATIENT HOSPICE [facility] NOT[facility]
--- NOTE | 2018-06-07 15:11 | DCINST_ITS ---
- Discharge Diagnoses Current Active Problems: Current Active and Chronic Problems (Last Reviewed 06/06/18 @ 05:53 by Vimal Padron MD) Pressure ulcer of sacral region, stage 4 (Chronic) Osteomyelitis (Chronic) You will use the following diet at home:: No restrictions Your food should be the consistency of: Regular Your liquids should be the consistency of: Regular/Thin Discharge Activity: No Restrictions Allergies/Adverse Reactions: Allergies Penicillins Allergy (Verified 11/28/16 09:57) Hives Medications to take at Discharge Amantadine Liquid 10 ml BC DAILY 06/05/18 Amino Acids/Protein Hydrolys [Pro-Stat Max Liquid] 30 ml PO TID 06/05/18 Arginine/Ascorbate Sod/[place] AC [Arginaid Powder] 1 each PO BID 06/05/18 Aspirin [Lite Coat Aspirin] 325 mg PO DAILY 06/05/18 Bromocriptine Mesylate [Parlodel] 5 mg PO BIDCM 06/05/18 Cyclobenzaprine HCl 10 mg PO BID 06/05/18 Gabapentin [Neurontin] 300 mg PO TID 06/05/18 Glucerna Shake 120 ml PO BID 06/05/18 Insulin Aspart [Novolog Flexpen] See Protocol SC 4X/DAY 06/05/18 Lactobacillus Acidophilus [Acidophilus] 1 cap PO BID 06/05/18 Metformin HCl [Glucophage] 1,000 mg PO BIDCM 06/05/18 Multivitamin [Multiple Vitamins] 1 tab PO DAILY 06/05/18 Sertraline HCl [Zoloft] 50 mg PO DAILY 06/05/18 Thiamine HCl [Vitamin B-1] 100 mg PO DAILY 06/05/18 Primary Care Physician: Shaun Mendoza MD [Primary Care Provider] - Test Results: Test results from this visit will be discussed in further detail at your follow- up appointment, if applicable.
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
== END 2018-06-07 15:30 | disposition hospice, inpatient (51) | DRG 380 ==
LOC: ED 19:22 → MS3 21:44
PROVIDERS: Admitting Provider Hospitalist; Emergency Provider Emergency Medicine; Family Provider Family Medicine; PCP Family Medicine; Visit Provider Family Medicine
DX: L89.154 Pressure ulcer of sacral region, stage 4 (principal); E11.69 Type 2 diabetes mellitus with other specified complication; M46.28 Osteomyelitis of vertebra, sacral and sacrococcygeal region; G25.0 Essential tremor; F32.9 Major depressive disorder, single episode, unspecified; Z79.4 Long term (current) use of insulin; Z98.2 Presence of cerebrospinal fluid drainage device; Z87.820 Personal history of traumatic brain injury; Z87.891 Personal history of nicotine dependence; Z51.5 Encounter for palliative care
CPT/HCPCS: 36415; 71045; 72100; 80048; 80202; 81001; 82962; 83605; 85025; 85652; 86140; 87040; 87070; 87077; 87086; 87088; 87186; 87205; 87640; 97110; 97162; 97167; 97802; 99218; 99283; J2185; J7030; J7040; J7050; A4216; G0378